=== PATIENT | female | born 1985 | race African-American/Black ===

== ENCOUNTER 2017-06-18 10:09 | Emergency (ER) | payer BC, SELFPAY ==
[~2017-06-18] VITALS: Ht 167.6 cm; Wt 57.2 kg
[~2017-06-18 10:09] MED LIST: ALBUTEROL2.5 MG/3 M INH; AMOXICILLIN500 MG ORAL; CORTISPORIN EAR10 ML RIGHT EAR; CYCLOBENZAPRINE10 MG ORAL; IBUPROFEN600 MG ORAL
[2017-06-18 11:00] VITALS: BP 115/76
[2017-06-18] MEDS ORDERED: IBUPROFEN600 MG ORAL (11:22)
--- NOTE | 2017-06-18 11:26 | Emergency Room Report ---
History of Present Illness General Chief Complaint: Pain Source: Patient Present Illness HPI 31yo F c/o painful lump to R breast x fwe weeks denies f/c, denies SOB, cough, nipple discharge, redness Allergies: Coded Allergies: No Known Allergies (Unverified , 06/10/13) Patient History Past Medical History: see triage record Last Menstrual Period: 05/25/17 Now: No : 2 Para: 0 Reviewed Nursing Documentation: PMH: Agreed, PSxH: Agreed Nursing Documentation-PMH Past Medical History: No History, Except For Hx Asthma: Yes Review of Systems All Other Systems: negative except mentioned in HPI Physical Exam Vital Signs Date Time Temp Pulse Resp B/P (MAP) Pulse Ox O2 Delivery O2 Flow Rate FiO2 06/18/17 10:39 98.9 79 20 115/76 99 Room Air 99.0 Sp02 EP Interpretation: reviewed, normal General Appearance: no apparent distress, alert, non-toxic Head: normocephalic Eyes: bilateral eye normal inspection, bilateral eye PERRL, bilateral eye EOMI ENT: normal ENT inspection, hearing grossly normal, normal pharynx, no angioedema, normal voice, moist mucus membranes Neck: normal inspection, full range of motion, supple, supple/symm/no masses Respiratory: chest non-tender, lungs clear, normal breath sounds, chest symmetrical, palpation of chest normal Cardiovascular #1: normal peripheral pulses, regular rate, rhythm Cardiovascular #2: 2+ radial (R), 2+ radial (L) Gastrointestinal: normal inspection, non tender, soft, no mass, no guarding, no rebound Rectal: deferred Genitourinary: normal inspection, no CVA tenderness Musculoskeletal: back normal, gait/station normal, normal range of motion, non- tender, no calf tenderness Neurologic: alert, responsive, green coffee blender III-XII nml as tested, motor strength/tone normal, sensory intact, speech normal Psychiatric: judgement/insight normal, memory normal, mood/affect normal, no suicidal/homicidal ideation Skin: normal color, no rash, warm/dry, normal turgor Lymphatic: no adenopathy Other Organ Systems R breast exam with ~3cm lump at 6 oclock position, no skin changes, no warmth, no fluctuance, no nipple discharge, performed with female RN at bedside Medical Decision Making Reaction to Intervention: No change ER Course Pt with breast lump, recs for f/u iin next week with PMD for biopsy, pt understands and agrees to call PMD based on insurance card she has Last Vital Signs Date Time Temp Pulse Resp B/P (MAP) Pulse Ox O2 Delivery O2 Flow Rate FiO2 06/18/17 11:00 99.0 20 115/76 99 Room Air 99.0 06/18/17 10:39 79 Disposition: HOME, SELF-CARE Condition: Stable Scripts Ibuprofen* (MOTRIN*) 600 Mg Tablet 600 MG ORAL Q8H Y for For Pain, #30 TAB 0 Refills Prov: KUN MCCANN M.D 06/18/17 Patient Instructions: Breast Tenderness KUN MCCANN M.D Jun 18, 2017 11:26
[2017-06-18 11:29] VITALS: BP 115/76
== END 2017-06-18 11:30 | disposition home or self-care (01) ==
LOC: EMR 11:00
DX: N63.14 Unspecified lump in the right breast, lower inner quadrant (principal); N64.4 Mastodynia; J45.909 Unspecified asthma, uncomplicated
CPT/HCPCS: 99283